=== PATIENT | female | born 1995 | race Caucasian/White ===

== ENCOUNTER 2016-11-12 11:59 | Emergency (ER) | payer OTHER ==
[2016-11-12 12:12] VITALS: BP 112/65; PULSE 64; RESP 18; TEMP 98.3; O2SAT 98
[2016-11-12] MEDS ORDERED: DICL75TA PO (12:38)
[2016-11-12] MEDS ORDERED: ROBA500T PO (12:38)
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
== END 2016-11-12 13:31 | disposition home or self-care (01) ==
LOC: PHEFT 11:59
DX: S20.00XA Contusion of breast, unspecified breast, initial encounter (principal); S13.4XXA Sprain of ligaments of cervical spine, initial encounter; V89.2XXA Person injured in unspecified motor-vehicle accident, traffic, initial encounter
CPT/HCPCS: 70450; 72125; 99285; L0150